=== PATIENT | male | born 1980 | race African-American/Black ===

== ENCOUNTER 2020-07-05 10:09 | Emergency (ER) | payer MEDICAID, OTHER ==
[~2020-07-05] VITALS: Ht 185.4 cm; Wt 86.2 kg
[2020-07-05 10:58] VITALS: BP 110/67
[2020-07-05] MEDS ORDERED: IBUPROFEN 800 MG TAB PO ONE (11:45)
== END 2020-07-05 12:33 | disposition home or self-care (01) ==
LOC: ER 10:09
DX: M50.20 Other cervical disc displacement, unspecified cervical region (principal); M62.838 Other muscle spasm; M25.511 Pain in right shoulder; M25.512 Pain in left shoulder; R51.9 Headache, unspecified; F17.210 Nicotine dependence, cigarettes, uncomplicated; V49.59XA Passenger injured in collision with other motor vehicles in traffic accident, initial encounter; Y93.89 Activity, other specified; Y92.488 Other paved roadways as the place of occurrence of the external cause; Y99.8 Other external cause status
CPT/HCPCS: 72100; 72125; 73030